=== PATIENT | male | born 1955 | race Caucasian/White ===

== ENCOUNTER 2022-01-18 11:14 | Inpatient (IN) | payer MEDICARE ==
[~2022-01-18] VITALS: Ht 182.9 cm; Wt 89.4 kg
--- NOTE | 2022-01-18 11:34 | NUR ---
HERBERT [id number] FROM HOME W/ C/O LOWER BACK PAIN X2 WEEKS, WORST SINCE NIGHT, UNABLE TO GET UP. TO ER BED 13.
[2022-01-18] MEDS ORDERED: KETOROLAC TROMETHAMINE INJ 30 MG/ML VIAL IV ONE ×2 (12:00→19:30)
[2022-01-18] MEDS ORDERED: METHOCARBAMOL (500MG) 500 MG TABLET PO ONE (12:00)
[2022-01-18] MEDS ORDERED: KETOROLAC TROMETHAMINE 15 MG/ML VIAL ONE ×2 (12:14→20:47)
[2022-01-18] MEDS ORDERED: METHOCARBAMOL (500MG) 500 MG TABLET ONE ×2 (12:14→20:48)
--- NOTE | 2022-01-18 12:19 | NUR ---
patient to ct.
--- NOTE | 2022-01-18 14:12 | NUR ---
MOVE SHEET SUBMITTED.
--- NOTE | 2022-01-18 14:14 | NUR ---
covid swab collected and sent to lab.
[2022-01-18 14:56] LABS: BASOPHILS % (AUTO) 0.4 % (0.0-2.0); EOSINOPHILS % (AUTO) 0.4 % (0.0-6.0); HEMATOCRIT 32 % (39-51); HEMOGLOBIN 10.7 g/dL (13.5-17.5); LYMPHOCYTES % (AUTO) 12.9 % (20.0-44.0); MEAN CORPUSCULAR HGB CONC 34 g/dl (31.0-36.0); MEAN CORPUSCULAR VOLUME 90 fL (80-96); MONOCYTES # (AUTO) 0.6 K/uL (0.1-1.30); MONOCYTES % (AUTO) 7.7 % (2.0-12.0); NEUTROPHILS # (AUTO) 6.1 K/uL (1.8-8.9); NEUTROPHILS % (AUTO) 78.6 % (43.0-81.0); PLATELET COUNT (AUTO) 263 K/uL (150-450); RED BLOOD CELL COUNT(AUTO) 3.56 MIL/uL (4.5-6.0); WHITE BLOOD COUNT (AUTO) 7.8 K/uL (4.3-11.0)
[2022-01-18 15:19] LABS: BILIRUBIN,DIRECT 0.3 mg/dL (0.0-0.2); BILIRUBIN,TOTAL 1.4 mg/dL (0.2-1.0); CALCIUM, SERUM 9.1 mg/dL (8.5-10.1); CREATININE 0.9 mg/dL (0.6-1.3); POTASSIUM 4.1 mmol/L (3.5-5.1); TOTAL PROTEIN, SERUM 6.8 g/dL (6.4-8.2)
[2022-01-18] MEDS ORDERED: METHOCARBAMOL (750MG) 750 MG TABLET PO ONE (19:30)
[2022-01-18] MEDS ORDERED: hydrALAZINE HCL IV 20 MG VIAL IV PRN (22:30)
[2022-01-18] MEDS ORDERED: ONDANSETRON HCL/PF 4 MG/2 ML VIAL IVP PRN (22:30)
[2022-01-18] MEDS ORDERED: SIMVASTATIN 20 MG TABLET PO SCH (23:00)
--- NOTE | 2022-01-18 23:41 | NUR ---
REPORT GIVEN TO DEBBY Jones RN FOR FIDENCIO
--- NOTE | 2022-01-19 | NUR ---
patient transferred vss
[2022-01-19] MEDS: LISINOPRIL (20MG) 20 MG TABLET PO SCH ×2 (00:38→08:42)
--- NOTE | 2022-01-19 00:45 | NUR ---
MS GROUP HOME WORKER NOTE RECEIVED PATIENT FROM ER VIA GURNEY. PATIENT IS AWAKE, ALERT AND ORIENTED X 4; VERBALLY RESPONSIVE. ON ROOM AIR; TOLERATING WELL. BREATHING EQUAL AND NONLABORED. NOT IN ANY FORM OF RESPIRATORY DISTRESS. DENIES ANY PAIN OR DISCOMFORT AT THIS TIME. WITH IV ACCESS ON LEFT FOREARM 20G; PATENT, INTACT AND SALINE LOCKED. ABLE TO MAKE NEEDS KNOWN. ORIENTED TO STAFF, ROOM AND UNIT. BODY ASSESSMENT DONE. PICTURES TAKEN FROM SACRUM AND RIGHT ARM; PLACED TO CHART. WOUND CARE CONSULT ORDERED. INVENTORY OF PERSONAL BELONGINGS DONE AND ACCOUNTED FOR. SAFETY PRECAUTIONS IMPLEMENTED: CALL LIGHT AND TABLE WITHIN REACH, SIDE RAILS UP X 3, BED IN LOWEST LOCKED POSITION. WILL CONTINUE PLAN OF CARE.
[2022-01-19] MEDS: MORPHINE SULFATE INJ 2 MG/ML DISP.SYRIN IV PRN ×2 (05:23→09:25)
--- NOTE | 2022-01-19 05:23 | NUR ---
RN Note Patient complained of lower back pain 8/10 pain scale. PRN Morphine inj 2mg given IV as ordered. Will continue to monitor and reassess patient.
[2022-01-19 06:06] LABS: BASOPHILS # (AUTO) 0.1 K/uL (0.0-0.2); BASOPHILS % (AUTO) 0.7 % (0.0-2.0); EOSINOPHILS % (AUTO) 0.5 % (0.0-6.0); HEMATOCRIT 32 % (39-51); HEMOGLOBIN 10.7 g/dL (13.5-17.5); LYMPHOCYTES # (AUTO) 0.9 K/uL (0.8-4.8); LYMPHOCYTES % (AUTO) 11.5 % (20.0-44.0); MEAN CORPUSCULAR HGB CONC 34 g/dl (31.0-36.0); MEAN CORPUSCULAR VOLUME 89 fL (80-96); MONOCYTES # (AUTO) 0.5 K/uL (0.1-1.30); MONOCYTES % (AUTO) 6.1 % (2.0-12.0); NEUTROPHILS # (AUTO) 6.2 K/uL (1.8-8.9); NEUTROPHILS % (AUTO) 81.2 % (43.0-81.0); PLATELET COUNT (AUTO) 238 K/uL (150-450); RED BLOOD CELL COUNT(AUTO) 3.55 MIL/uL (4.5-6.0); WHITE BLOOD COUNT (AUTO) 7.6 K/uL (4.3-11.0)
--- NOTE | 2022-01-19 07:05 | NUR ---
MS RN CLOSING NOTE PATIENT IN BED; AWAKE, A/O X 4. STABLE ON ROOM AIR. BREATHING EVEN AND UNLABORED. IN NO ACUTE DISTRESS. DENIES ANY PAIN OR DISCOMFORT AT THIS TIME. WITH IV ACCESS ON LEFT FOREARM 20G; PATENT, INTACT AND SALINE LOCKED. ALL NEEDS ATTENDED. SAFETY PRECAUTIONS MAINTAINED: CALL LIGHT AND TABLE WITHIN REACH, SIDE RAILS UP X 3, BED IN LOWEST LOCKED POSITION. ENDORSED TO MORNING SHIFT FOR FIDENCIO.
[2022-01-19 07:21] LABS: ALBUMIN 2.9 g/dL (3.4-5.0); BILIRUBIN,TOTAL 1.6 mg/dL (0.2-1.0); CALCIUM, SERUM 9.4 mg/dL (8.5-10.1); CREATININE 0.7 mg/dL (0.6-1.3); MAGNESIUM 1.8 mg/dL (1.8-2.4); PHOSPHORUS 3.2 mg/dL (2.5-4.9); POTASSIUM 3.9 mmol/L (3.5-5.1); TOTAL PROTEIN, SERUM 6.9 g/dL (6.4-8.2)
--- NOTE | 2022-01-19 07:40 | NUR ---
MS RN OPENING NOTE Patient in bed, awake. A/O x 4, able to make needs known. On room air, breathing evenly and unlabored. No SOB or s/s of distress noted. IV access on LFA #20 SL, intact and patent. Safety precautions in place: bed in low, locked position; siderails up x 2; call light within reach. Will continue to monitor.
[2022-01-19 08:21] VITALS: BP 153/90
[2022-01-19] MEDS ORDERED: SIMV-49 PO (08:43)
[2022-01-19] MEDS ORDERED: LISI20TA30 PO (08:43)
[2022-01-19] MEDS ORDERED: OXYC1TAB12 PO (08:43)
[2022-01-19] MEDS ORDERED: IBUP-1957 PO (08:43)
[2022-01-19] MEDS: DOCUSATE SODIUM LIQ 100 MG/10 ML UDC PO SCH ×2 (08:44→16:52)
[2022-01-19] MEDS: HEPARIN SODIUM, PORCINE 5000 UNITS/1 ML VIAL SQ SCH ×2 (08:44→21:18)
[2022-01-19] MEDS: POLYETHYLENE GLYCOL 3350 17 GM POWD.PACK PO SCH (08:44)
--- NOTE | 2022-01-19 09:25 | NUR ---
RN NOTE Patient complained of pain on left lower back, 8/10 on pain scale. PRN Morphine given. Will continue to monitor.
[2022-01-19] MEDS ORDERED: ONDANSETRON HCL/PF 4 MG/2 ML VIAL IVP PRN (12:30)
[2022-01-19] MEDS: GABAPENTIN 300 MG CAPSULE PO SCH ×2 (12:47→16:46)
[2022-01-19] MEDS: HYDROMORPHONE 1 MG/1 ML DISP.SYRIN IV PRN ×3 (12:52→21:19)
--- NOTE | 2022-01-19 12:52 | NUR ---
RN NOTE Patient complained of pain on left lower back, 8/10 on pain scale. PRN Dilaudid given. Will continue to monitor.
[2022-01-19 16:11] VITALS: BP 149/91
--- NOTE | 2022-01-19 16:48 | NUR ---
RN NOTE Patient complained of pain on left lower back, 8/10 on pain scale. PRN Dilaudid 1 mg given. Will continue to monitor.
--- NOTE | 2022-01-19 18:47 | NUR ---
MS RN CLOSING NOTE Patient in bed, resting. A/O x 4, able to make needs known. On room air, breathing evenly and unlabored. No SOB or s/s of distress noted. IV access on LFA #20 SL, intact and patent. due meds given. All needs attended to. Safety precautions in place: bed in low, locked position; siderails up x 2; call light within reach. Will endorse to weight shifter nurse for FIDENCIO.
--- NOTE | 2022-01-19 19:15 | NUR ---
RN OPENING NOTE PATIENT IN BED,EYES CLOSED. EASILY AWAKENED. PATIENT IS ABLE TO MAKE NEEDS KNOWN, A/O X4. PATIENT IS CURRENTLY ON RA, TOLERATING WELL, NO SOB NOTED, BREATHING EVEN AND UNLABORED. PATIENT HAS A LFA 20 G PATENT AND INTACT, SALINE LOCKED AT THIS TIME. PATIENT NOT IN ANY DISTRESS. SAFETY MEASURES IN PLACE: BED LOCKED AND IN LOWEST POSITION, CALL LIGHT WITHIN REACH, SIDE RAILS UP. WILL MONITOR PATIENT CLOSELY.
[2022-01-19 20:00] VITALS: BP 137/90
[2022-01-19] MEDS: SIMVASTATIN 20 MG TABLET PO SCH (21:16)
[2022-01-19] MEDS: TRAZODONE 50 MG TABLET PO PRN (23:05)
--- NOTE | 2022-01-19 23:09 | NUR ---
RN NOTE patient requested sleeping medicine, notified md that patient stated that he takes trazadone at home but doesnt know the dose, md ordered trazodone 100 mg qhs prn. order read back, carried out.
--- NOTE | 2022-01-20 06:55 | NUR ---
RN CLOSING NOTE PATIENT IN BED,EYES CLOSED. EASILY AWAKENED. PATIENT IS ABLE TO MAKE NEEDS KNOWN, A/O X 4. PATIENT IS CURRENTLY ON RA, TOLERATING WELL, NO SOB NOTED, BREATHING EVEN AND UNLABORED. PATIENT HAS A LFA 20 G PATENT AND INTACT, SALINE LOCKED AT THIS TIME. MANAGED PAIN WITH DILAUDID 0.5 MG. PATIENT WOULD LIKE TO RECEIVE PAIN MEDICATION BEFORE PT, IF PT SEES HIM TODAY AND WOULD LIKE TO SPEAK TO MD FIRST BEFORE PT WELL. PATIENT NOT IN ANY DISTRESS. SAFETY MEASURES IN PLACE: BED LOCKED AND IN LOWEST POSITION, CALL LIGHT WITHIN REACH, SIDE RAILS UP. ALL NEEDS MET AND ATTENDED. ALL ORDERS CARRIED OUT. WILL ENDORSE TO DAY SHIFT NURSE FOR FIDENCIO.
--- NOTE | 2022-01-20 07:01 | NUR ---
MS RN OPENING NOTES RECEIVED PATIENT SLEEPING IN BED, ON ROOM AIR, NO S/S OF RESPIRATORY DISTRESS. A/Ox4 ABLE TO MAKE NEEDS KNOWN. PATIENT IS ON BEDREST, NO COMPLAINT OF PAIN OR DISCOMFORT. IV ACCESS L FA #20 SL. INTACT AND PATENT. NO S/S OF INFILTRATION. PATIENT HAS SACRAL REDNESS AND R FA SCAB. SAFETY MEASURES IN PLACE: BED LOCKED AND IN LOWEST POSITION, SIDE RAILS UPx2, HOB ELEVATED, CALL LIGHT WITHIN REACH WILL CONTINUE TO MONITOR.
[2022-01-20 08:07] VITALS: BP 140/78
[2022-01-20] MEDS: GABAPENTIN 300 MG CAPSULE PO SCH ×3 (08:15→17:06)
[2022-01-20] MEDS: LISINOPRIL (20MG) 20 MG TABLET PO SCH (08:16)
[2022-01-20] MEDS: HYDROMORPHONE 1 MG/1 ML DISP.SYRIN IV PRN ×5 (08:17→21:54)
[2022-01-20] MEDS: HEPARIN SODIUM, PORCINE 5000 UNITS/1 ML VIAL SQ SCH ×2 (08:21→21:05)
[2022-01-20] MEDS: DOCUSATE SODIUM LIQ 100 MG/10 ML UDC PO SCH ×2 (08:35→17:00)
[2022-01-20] MEDS: POLYETHYLENE GLYCOL 3350 17 GM POWD.PACK PO SCH (08:35)
--- NOTE | 2022-01-20 08:50 | NUR ---
RN NOTES PATIENT COMPLAINED OF PAIN OF BACK, PRN DILAUDID ADMINISTERED WILL CONTINUE TO MONITOR.
[2022-01-20] MEDS ORDERED: LISINOPRIL (20MG) 20 MG TABLET PO SCH (09:00)
[2022-01-20] MEDS: ACETAMINOPHEN 325 MG TABLET PO PRN (11:39)
--- NOTE | 2022-01-20 11:58 | NUR ---
RN NOTES PATIENT COMPLAINED OF PAIN OF BACK, PRN DILAUDID ADMINISTERED AND OF HEADACHE, PRN TYLENOL ADMINISTERED. WILL CONTINUE TO MONITOR.
[2022-01-20] MEDS ORDERED: DEXAMETHASONE SOD PHOSPHATE 10 MG/ML VIAL IV ONE (14:30)
--- NOTE | 2022-01-20 15:37 | NUR ---
RN NOTES PATIENT COMPLAINED OF PAIN, PRN DILAUDID ADMINISTERED. WILL CONTINUE TO MONITOR.
[2022-01-20 15:55] VITALS: BP 127/72
--- NOTE | 2022-01-20 18:54 | NUR ---
MS RN CLOSING NOTES PATIENT RESTING IN BED, STABLE ON ROOM AIR, NO S/S OF RESPIRATORY DISTRESS. A/Ox4 ABLE TO MAKE NEEDS KNOWN. PATIENT IS ON BEDREST, NO COMPLAINT OF PAIN OR DISCOMFORT. IV ACCESS L FA #20 SL. INTACT AND PATENT. NO S/S OF INFILTRATION. PATIENT HAS SACRAL REDNESS AND R FA SCAB. ALL PRESCRIBED MEDICATION ADMINISTERED. PRN DILAUDID ADMINISTERED FOR PAIN @1849. SAFETY MEASURES MAINTAINED: BED LOCKED AND IN LOWEST POSITION, SIDE RAILS UPx2, HOB ELEVATED, CALL LIGHT WITHIN REACH. WILL ENDORSE TO NEXT SHIFT ANY FIDENCIO.
--- NOTE | 2022-01-20 19:24 | NUR ---
noc rn opening received patient in bed. a/ox4. no s/s of apparent distress on room air. pain tolerable at this time per patient. no fluids running at this time. call light within reach. safety in place. will cont. with the plan for patient.
[2022-01-20 20:00] VITALS: BP 124/61
--- NOTE | 2022-01-20 20:59 | NUR ---
noc rn note patient requesting to have his desyrel at this time. per patient "I'm really tired and I just want to sleep, can I get the sleeping medication now". patient teaching done at this time. patient persist to take medication early. will admin.
[2022-01-20] MEDS: TRAZODONE 50 MG TABLET PO PRN (21:02)
[2022-01-20] MEDS: SIMVASTATIN 20 MG TABLET PO SCH (21:02)
[2022-01-21] MEDS: HYDROMORPHONE 1 MG/1 ML DISP.SYRIN IV PRN ×5 (05:47→21:41)
--- NOTE | 2022-01-21 07:06 | NUR ---
noc rn note patient request for his diet to be changed to mechanical soft since per patient he is having hard time to eat with the regular food they bring when all he can be is on supine position. Charge nurse made aware and diet changed to mech soft as requested by patient.
--- NOTE | 2022-01-21 07:26 | NUR ---
noc rn note all needs attended. all scheduled meds administered. report given to Crystal for continuity of care.
--- NOTE | 2022-01-21 07:28 | NUR ---
ms rn received on bed, awake,alert,oriented x4,always complaining of pain, refused to be repositioned, no sob noted, lungs are clear,abdomen soft, positive bowel sounds,will monitor patient.
[2022-01-21 08:00] VITALS: BP 124/81
[2022-01-21] MEDS: DEXAMETHASONE SOD PHOSPHATE 10 MG/ML VIAL IV SCH (08:51)
[2022-01-21] MEDS: GABAPENTIN 300 MG CAPSULE PO SCH ×3 (08:51→17:16)
[2022-01-21] MEDS: DOCUSATE SODIUM LIQ 100 MG/10 ML UDC PO SCH ×3 (08:52→17:00)
[2022-01-21] MEDS: HEPARIN SODIUM, PORCINE 5000 UNITS/1 ML VIAL SQ SCH ×2 (08:52→21:26)
[2022-01-21] MEDS: POLYETHYLENE GLYCOL 3350 17 GM POWD.PACK PO SCH ×2 (08:53→09:00)
[2022-01-21] MEDS: LISINOPRIL (20MG) 20 MG TABLET PO SCH (08:53)
--- NOTE | 2022-01-21 09:00 | NUR ---
ms carroll breakfast served,due meds given,tolerated well.
[2022-01-21] MEDS: TIZANIDINE HCL 4 MG TABLET PO SCH ×2 (13:08→20:02)
[2022-01-21 15:49] VITALS: BP 65/45
--- NOTE | 2022-01-21 16:00 | NUR ---
ms n texted Garo Lester, time to given pain meds but b/p is 69/44, patient is asymptomatic.
--- NOTE | 2022-01-21 16:40 | NUR ---
ms rn still waiting for him to call back.
[2022-01-21] MEDS ORDERED: IV NS 0.9% 1,000 ML IV PRN ×3 (16:59→17:30)
--- NOTE | 2022-01-21 17:00 | NUR ---
ms glen kulkarni texted back w/ order made and carried out.
[2022-01-21] MEDS: ACETAMINOPHEN 325 MG TABLET PO PRN (17:16)
--- NOTE | 2022-01-21 18:06 | NUR ---
ms rn patient has been medicated for pain on regular basis, refused to take stool softener and refused to be repositioned.
--- NOTE | 2022-01-21 19:26 | NUR ---
noc rn opening received patient in bed. a/ox4. no s/s of apparent distress on room air. pain tolerable at this time per patient. patient just got done with the bolus. call light within reach. safety in place. will cont. with the plan for patient.
[2022-01-21 20:00] VITALS: BP 90/56
[2022-01-21] MEDS: SIMVASTATIN 20 MG TABLET PO SCH (21:26)
--- NOTE | 2022-01-21 21:35 | NUR ---
noc rn note BP 94/58 hr 80. patient still c/o 10/10 pain and per patient "they gave it to me earlier when it was in the 90" will give Dilaudid PRN as ordered.
[2022-01-21] MEDS: TRAZODONE 50 MG TABLET PO PRN (22:49)
[2022-01-22] MEDS: TIZANIDINE HCL 4 MG TABLET PO SCH ×3 (05:02→20:26)
[2022-01-22 08:00] VITALS: BP 119/83
[2022-01-22] MEDS: HYDROMORPHONE 1 MG/1 ML DISP.SYRIN IV PRN ×4 (08:34→20:26)
[2022-01-22] MEDS: GABAPENTIN 300 MG CAPSULE PO SCH ×3 (08:35→17:21)
[2022-01-22] MEDS: LISINOPRIL (20MG) 20 MG TABLET PO SCH (08:35)
[2022-01-22] MEDS: DEXAMETHASONE SOD PHOSPHATE 10 MG/ML VIAL IV SCH (08:36)
[2022-01-22] MEDS: POLYETHYLENE GLYCOL 3350 17 GM POWD.PACK PO SCH (08:38)
[2022-01-22] MEDS: HEPARIN SODIUM, PORCINE 5000 UNITS/1 ML VIAL SQ SCH ×2 (08:52→20:25)
[2022-01-22] MEDS: DOCUSATE SODIUM LIQ 100 MG/10 ML UDC PO SCH ×2 (09:00→17:21)
[2022-01-22] MEDS: ACETAMINOPHEN 325 MG TABLET PO PRN (11:08)
[2022-01-22 12:27] LABS: BILIRUBIN,URINE NEGATIVE (NEGATIVE); COLOR,URINE YELLOW (YELLOW); LEUKOCYTE ESTERASE ,URINE 3+ (NEGATIVE); NITRITE, URINE POSITIVE (NEGATIVE); PROTEIN,URINE 1+ mg/dl (NEGATIVE); UGLUCOSE NEGATIVE (NEGATIVE)
[2022-01-22 12:43] LABS: BACTERIA,URINE Many /HPF (None Seen); SQUAMOUS EPITHELIAL CELL,UR Few /HPF (None Seen); WBC,URINE TOO NUMEROUS TO COUN /HPF (0-3)
--- NOTE | 2022-01-22 18:25 | NUR ---
RN CLOSING NOTE PATIENT RECEIVED IN BED AND ASLEEP. A/O X4 AND ABLE TO VERBALIZE ALL NEEDS. IV SITE TO LFA DISLODGED; NO S/SX OF TRAUMA, BLEEDING, INFILTRATION TO SITE. NEW IV SITE TO RAC 22G PLACED. INTACT AND PATENT. PATIENT C/O PAIN TO LOWER BACK THROUGHOUT SHIFT. RECEIVED PRN DILAUDID PRN Q3HR THROUGHOUT SHIFT. MEDICATION EFFECTIVE. PATIENT REFUSED BREAKFAST, HOWEVER TOLERATED LUNCH WELL. URINE SENT TO LAB FOR URINALYSIS AND URINE CULTURE; RESULTS PENDING. SAFETY MEASURES INTACT WITH BED LOW AND LOCKED. CALL LIGHT WITHIN REACH. WILL CONT TO MONITOR.
--- NOTE | 2022-01-22 19:30 | NUR ---
MS RN NOTES RECEIVED ON BED A/O X4,APPEARS UPSET SAYING HE DIDNT GET HIS DINNER FOOD.PROVIDED WITH SANDWICHES,PUDDING,CRACKERS,JUICE AND HE'S HAPPY. BREATHING LUCIA REGULAR,PAIN TOLERABLE AT THE MOMENT.SALINE LOCK RIGHT AC INTACT AND PATENT.CONTINENT USING URINAL.CALL LIGHT IN REACH,NEEDS ANTICIPATED.
[2022-01-22 20:00] VITALS: BP 104/70
--- NOTE | 2022-01-22 20:26 | NUR ---
MS RN NOTES PAIN MANAGEMENT C/O LOWER BACK PAIN 8/10 ON PAIN SCALE,DILAUDID 0.5MG IV GIVEN ORDERED.VITAL SIGNS STABLE.
[2022-01-22] MEDS: SIMVASTATIN 20 MG TABLET PO SCH (21:33)
[2022-01-22] MEDS: TRAZODONE 50 MG TABLET PO PRN (21:33)
--- NOTE | 2022-01-22 21:33 | NUR ---
MS RN NOTES C/O INSOMNIA,TRAZODONE 100MG PO GIVEN ORDERED AND PER PATIENT REQUEST.
--- NOTE | 2022-01-23 00:15 | NUR ---
MS RN NOTES REPORT GIVEN TO PARI WALKER FOR FIDENCIO.
--- NOTE | 2022-01-23 00:21 | NUR ---
RN NOTE (RECEIVING PATIENT) RECEIVED PATIENT FROM [facility]. PATIENT STABLE; WILL CONTINUE TO MONITOR.
[2022-01-23] MEDS: TIZANIDINE HCL 4 MG TABLET PO SCH ×3 (05:12→21:05)
[2022-01-23] MEDS: HYDROMORPHONE 1 MG/1 ML DISP.SYRIN IV PRN ×5 (05:25→21:06)
--- NOTE | 2022-01-23 06:35 | NUR ---
RN CLOSING NOTE PATIENT AWAKE IN BED. A/OX4. NO S/S OF DISTRESS, BREATHING WITHOUT DIFFICULTY ON ROOM AIR. RAC #22 HL INTACT AND PATENT. SAFETY MEASURES IN PLACE: BED LOCKED AND AT LOWEST POSITION, RAILS UP X2, CALL OVALLE WITHIN REACH. WILL ENDORSE TO NEXT SHIFT FOR FIDENCIO.
[2022-01-23 08:00] VITALS: BP 111/77
[2022-01-23] MEDS: DOCUSATE SODIUM LIQ 100 MG/10 ML UDC PO SCH ×2 (09:00→17:35)
[2022-01-23] MEDS: LISINOPRIL (20MG) 20 MG TABLET PO SCH (09:09)
[2022-01-23] MEDS: DEXAMETHASONE SOD PHOSPHATE 10 MG/ML VIAL IV SCH (09:09)
[2022-01-23] MEDS: POLYETHYLENE GLYCOL 3350 17 GM POWD.PACK PO SCH (09:09)
[2022-01-23] MEDS: GABAPENTIN 300 MG CAPSULE PO SCH ×3 (09:09→17:35)
[2022-01-23] MEDS: HEPARIN SODIUM, PORCINE 5000 UNITS/1 ML VIAL SQ SCH ×2 (09:31→21:04)
--- NOTE | 2022-01-23 10:18 | NUR ---
WOUND CARE CONSULT: PT PRESENTS WIT STAGE 2 ULCER TO SACRUM WITH SURROUNDING RASH TO BUTTOCKS, PRESENT ON ADMISSION. RECOMMENDATIONS MADE FOR SKIN PROTECTION AND WOUND CARE. DISCUSSED WITH NURSING STAFF. IN AGREEMENT WITH PLAN OF CARE. Addendum: 01/23/22 at 1019 by MERLE ESPINOZA WNDNU Amended: Links added.
[2022-01-23 16:00] VITALS: BP 101/69
[2022-01-23] MEDS: CLOTRIMAZOLE 1% 15 GM TUBE TP SCH (17:35)
[2022-01-23] MEDS: ENSURE ENLIVE 237 ML LIQUID (VANILLA) PO SCH (17:36)
--- NOTE | 2022-01-23 18:24 | NUR ---
RN CLOSING NOTES PATIENT RECEIVED IN BED AND ASLEEP. A/O X4 AND ABLE TO VERBALIZE ALL NEEDS. IV SITE TO RAC DISLODGED; NO S/SX OF TRAUMA, BLEEDING, INFILTRATION TO SITE. NEW IV SITE TO LAC 22G PLACED. INTACT AND PATENT. PATIENT CONTINUES TO C/O PAIN TO LOWER BACK THROUGHOUT SHIFT. RECEIVED PRN DILAUDID PRN Q3HR THROUGHOUT SHIFT. MEDICATION EFFECTIVE PER PATIENT RESPONSE. PATIENT TOLERATED ALL MEALS WELL. OBSERVED UP AND WORKING WITH PHYSICAL THERAPY ON SHIFT. PATIENT TOLERATED SESSION WELL. POSSIBLE DISCHARGE BACK TO HOME WITH HOME HEALTH ON 01/24. WILL ENDORSE TO ONCOMING NURSE. SAFETY MEASURES INTACT WITH BED LOW AND LOCKED. CALL LIGHT WITHIN REACH. WILL CONT TO MONITOR.
--- NOTE | 2022-01-23 19:30 | NUR ---
MS RN OPENING NOTE RECEIVED PT AWAKE IN BED. A/O X4 AND ABLE TO MAKE NEEDS KNOWN. PT STABLE ON ROOM AIR. NO SOB OR S/S OF RESPIRATORY DISTRESS. BREATHING EVEN AND UNLABORED. IV ACCESS LAC 22G, INTACT AND PATENT. NO COMPLAINTS OF PAIN OR DISCOMFORT AT THIS TIME. SAFETY PRECAUTIONS IN PLACE. BED IN LOWEST LOCKED POSITION, HOB ELEVATED, SIDE RAILS UP X2, AND CALL LIGHT AND TABLE WITHIN REACH. ALL NEEDS MET AT THIS TIME.
[2022-01-23 20:00] VITALS: BP 105/71
[2022-01-23] MEDS: SIMVASTATIN 20 MG TABLET PO SCH (21:05)
--- NOTE | 2022-01-23 21:06 | NUR ---
RN NOTE PT COMPLAINED OF BACK PAIN 12/05. ADMINISTERED DILAUDID 0.5 MG FOR SEVERE PAIN ORDERED. MADE COMFORTABLE IN BED. ALL NEEDS MET AT THIS TIME.
[2022-01-23] MEDS: TRAZODONE 50 MG TABLET PO PRN (22:10)
--- NOTE | 2022-01-23 22:10 | NUR ---
RN NOTE PT REQUESTED SLEEPING PILL. ADMINISTERED TRAZADONE 100 MG FOR INSOMNIA ORDERED. MADE COMFORTABLE IN BED. ALL NEEDS MET AT THIS TIME.
[2022-01-24] MEDS: TIZANIDINE HCL 4 MG TABLET PO SCH ×3 (05:39→21:00)
--- NOTE | 2022-01-24 07:00 | NUR ---
MS RN CLOSING NOTE PT AWAKE IN BED. A/O X4 AND ABLE TO MAKE NEEDS KNOWN. PT STABLE ON ROOM AIR. NO SOB OR S/S OF RESPIRATORY DISTRESS. BREATHING EVEN AND UNLABORED. IV ACCESS LAC 22G, INTACT AND PATENT. NO COMPLAINTS OF PAIN OR DISCOMFORT AT THIS TIME. ALL DUE MEDS GIVEN ORDERED. WOUND TREATMENT DONE ORDERED. SAFETY PRECAUTIONS IN PLACE AT ALL TIMES. BED IN LOWEST LOCKED POSITION, HOB ELEVATED, SIDE RAILS UP X2, AND CALL LIGHT AND TABLE WITHIN REACH. ALL NEEDS MET AT THIS TIME AND WILL ENDORSE TO ONCOMING NURSE FOR FIDENCIO.
--- NOTE | 2022-01-24 07:55 | NUR ---
RN OPENING NOTE PATIENT AWAKE IN BED RESTING A/O X 1. NO S/S OF PAIN NOTED AT THIS TIME. ON ROOM AIR, NO DISTRESS OR SHORTNESS OF BREATH NOTED. IV ACCESS LAC #22G, INTACT, PATENT AND FLUSHING WELL. FALL AND SAFETY MEASURES IN PLACE, BED ALARM ON, BED IN LOW AND LOCK POSITION, CALL LIGHT AND TABLE WITHIN EASY REACH, SIDE RAILS X2. WILL CONTINUE TO MONITOR.
[2022-01-24 08:00] VITALS: BP 126/68
[2022-01-24] MEDS: LISINOPRIL (20MG) 20 MG TABLET PO SCH (08:39)
[2022-01-24] MEDS: DOCUSATE SODIUM LIQ 100 MG/10 ML UDC PO SCH ×2 (08:39→17:00)
[2022-01-24] MEDS: POLYETHYLENE GLYCOL 3350 17 GM POWD.PACK PO SCH (08:39)
[2022-01-24] MEDS: CLOTRIMAZOLE 1% 15 GM TUBE TP SCH ×2 (08:39→17:31)
[2022-01-24] MEDS: ACETAMINOPHEN 325 MG TABLET PO PRN ×2 (08:40→17:30)
[2022-01-24] MEDS: DEXAMETHASONE SOD PHOSPHATE 10 MG/ML VIAL IV SCH (08:40)
[2022-01-24] MEDS: GABAPENTIN 300 MG CAPSULE PO SCH ×3 (08:40→17:30)
[2022-01-24] MEDS: HEPARIN SODIUM, PORCINE 5000 UNITS/1 ML VIAL SQ SCH ×2 (08:41→20:59)
[2022-01-24] MEDS: ENSURE ENLIVE 237 ML LIQUID (VANILLA) PO SCH ×3 (08:42→17:31)
[2022-01-24] MEDS ORDERED: OXYC1TAB12 PO (10:08)
[2022-01-24] MEDS ORDERED: METH4TAB17 PO (10:08)
[2022-01-24] MEDS: HYDROMORPHONE 1 MG/1 ML DISP.SYRIN IV PRN ×2 (11:07→20:47)
[2022-01-24 16:00] VITALS: BP 104/66
--- NOTE | 2022-01-24 19:20 | NUR ---
MS RN OPENING NOTE RECEIVED PT AWAKE IN BED. A/O X4 AND ABLE TO MAKE NEEDS KNOWN. PT STABLE ON ROOM AIR. NO SOB OR S/S OF RESPIRATORY DISTRESS. BREATHING EVEN AND UNLABORED. IV ACCESS LAC 22G, INTACT AND PATENT. NO COMPLAINTS OF PAIN OR DISCOMFORT AT THIS TIME. SAFETY PRECAUTIONS IN PLACE. BED IN LOWEST LOCKED POSITION, HOB ELEVATED, SIDE RAILS UP X2, AND CALL LIGHT AND TABLE WITHIN REACH. PT IS DISCHARGED TO [facility], AWAITING FOR AMBULANCE TO PICK HIM UP AT 2130. WILL MONITOR ACCORDINGLY.
--- NOTE | 2022-01-24 19:21 | NUR ---
RN CLOSING NOTE PATIENT AWAKE IN BED RESTING A/O X 4. NO S/S OF PAIN NOTED AT THIS TIME. ON ROOM AIR, NO DISTRESS OR SHORTNESS OF BREATH NOTED. IV ACCESS LAC #22G, INTACT, PATENT AND FLUSHING WELL. SCHEDULE MEDICATIONS GIVEN. WOUND CARE IMPLEMENTED. FALL AND SAFETY MEASURES IN PLACE, BED ALARM ON, BED IN LOW AND LOCK POSITION, CALL LIGHT AND TABLE WITHIN EASY REACH, SIDE RAILS X2. WILL ENDORSE TO RESOURCE EFFICIENCY MANAGER.
[2022-01-24 20:00] VITALS: BP 106/79
[2022-01-24] MEDS: SIMVASTATIN 20 MG TABLET PO SCH (21:00)
[2022-01-24 21:14] VITALS: BP 99/67
--- NOTE | 2022-01-25 00:50 | NUR ---
MS ABSORPTION PLANT OPERATOR HELPER NOTE PT LEFT AT 0050 VIA AMBULANCE, IN [facility], WITH ALL HIS BELONGINGS. IV ACCESS TO LEFT FA REMOVED. PT LEFT FOR [facility] IN STABLE CONDITION, NO SOB, NO RESPIRATORY DISTRESS, NO PAIN NOTED AT THIS TIME. ALL DISCHARGE PAPERWORK ALREADY COMPLETED BY AM SHIFT NURSE. CD GIVEN TO PT. REPORT ALREADY GIVEN TO NURSE VILLALOBOS FROM [facility].
== END 2022-01-25 00:45 | DRG 552 ==
LOC: ER 11:16 → MED 22:09
PROVIDERS: ADMIT Internal Medicine; ATTEND Internal Medicine
DX: M48.061 Spinal stenosis, lumbar region without neurogenic claudication (principal); M48.54XA Collapsed vertebra, not elsewhere classified, thoracic region, initial encounter for fracture; E44.1 Mild protein-calorie malnutrition; M54.50 Low back pain, unspecified; D64.9 Anemia, unspecified; E78.5 Hyperlipidemia, unspecified; G89.29 Other chronic pain; E88.09 Other disorders of plasma-protein metabolism, not elsewhere classified; I10 Essential (primary) hypertension; E80.6 Other disorders of bilirubin metabolism; Z90.79 Acquired absence of other genital organ(s); Z85.46 Personal history of malignant neoplasm of prostate; Z68.26 Body mass index [BMI] 26.0-26.9, adult; M47.816 Spondylosis without myelopathy or radiculopathy, lumbar region; Z20.822 Contact with and (suspected) exposure to COVID-19
CPT/HCPCS: 36415; 72131-TC; 76700-TC; 80048-TC; 80053-TC; 80076-TC; 81001; 83735-TC; 84100-TC; 85025-TC; 87081-TC; 87086-TC; 97110-TC; 97116-TC; 97530-TC; C9803; G0378; J1100; J1170; J1644; J1885; J2270; J7030